=== PATIENT | male | born 1970 | race Caucasian/White ===

== ENCOUNTER 2025-02-03 17:34 | Emergency (ER) | payer OTHER ==
[~2025-02-03] VITALS: Ht 170.2 cm; Wt 92.0 kg
[2025-02-03 17:37] VITALS: PULSE 110; RESP 20; O2SAT 98
[2025-02-03 17:39] VITALS: BP 142/95; TEMP 36.6; O2SAT 96
[2025-02-03] MEDS ORDERED: TOPUD PO (18:53)
[2025-02-03] MEDS ORDERED: IBUP-2028 MT (18:53)
== END 2025-02-03 19:32 | disposition home or self-care (01) ==
LOC: ER 17:34
DX: M67.824 Other specified disorders of tendon, left elbow (principal); M77.8 Other enthesopathies, not elsewhere classified; M25.722 Osteophyte, left elbow; Z90.49 Acquired absence of other specified parts of digestive tract
CPT/HCPCS: 73080; 99283